=== PATIENT | female | born 1985 | race Caucasian/White ===

== ENCOUNTER 2021-01-29 08:24 | Emergency (ER) | payer BC, SELFPAY ==
--- NOTE | ~2021-01-29 | XR_ITS ---
EXAMINATION: XR ankle LT min 3V DATE: 01/29/2021 08:50 INDICATION: Left ankle pain TECHNIQUE: Anteroposterior, lateral, mortise, and additional oblique view of the ankle were obtained. COMPARISON: None. FINDINGS: There is no fracture, dislocation, or subluxation. The bones, soft tissues, and joint space s are normal. IMPRESSION: 1. No acute osseous abnormality. Reviewed, dictated and finalized at location A.
--- NOTE | 2021-01-29 08:30 | ED.LOWEXIN ---
HPI - Extremity Injury (Lower) General Chief Complaint: Extremity Injury, Lower Stated Complaint: left ankle injury Time Seen by Provider: 01/29/21 08:24 History of Present Illness HPI Narrative: Left ankle pain after rolling it coming down the stairs last night. Located at the lateral malleolus. Associated with swelling. She is not able to bear weight. No wound. No additional injury. Related Data Allergies Allergy/AdvReac Type Severity Reaction Status Date / Time Penicillins Allergy Intermediate HIVES,RASH Verified 01/29/21 08:37 Review of Systems Review of Systems: All systems reviewed & are unremarkable except as noted in HPI and below [facility] Social History Social History Gender identity (if verbalized by the patient): Female Exam Const: General: no acute distress and alert Orientation/consciousness: patient oriented x3 HENMT: Head: normal to inspection Resp: Effort & Inspection: normal respiratory effort Cardio: Other: 2+ left DP Skin: General skin exam: normal color Wounds: no wounds Neuro: General: patient oriented x3 and no focal motor deficits Speech: normal speech Extrem: Other: Tenderess and swelling over ATFL Course Vital Signs Vital signs: Vital Signs Temperature 36.3 C L 01/29/21 08:31 Pulse Rate 101 H 01/29/21 08:31 Respiratory Rate 20 01/29/21 08:31 Blood Pressure 163/93 H 01/29/21 08:31 Pulse Oximetry 98 01/29/21 08:31 Temperature 36.3 C L 01/29/21 08:31 Pulse Rate 87 01/29/21 09:34 Respiratory Rate 16 01/29/21 09:34 Blood Pressure 129/91 H 01/29/21 09:34 Pulse Oximetry 97 01/29/21 09:34 MDM - Extremity Injury (Lower) Differential Diagnosis Differential diagnosis: Likely ankle sprain and strain and ankle fracture Medical Records Attestation: I reviewed the patient's medical records. Imaging Data Radiologist's impression: ITS Impressions Ankle X-Ray 01/29/21 09:09 IMPRESSION: 1. No acute osseous abnormality. Discharge Plan Discharge Clinical Impression: Ankle sprain Patient Disposition: Home, Self-Care Condition: Stable Instructions: Ankle Sprain (ED) Follow-up/Referrals: Doretha,Juan Hobson DO [Primary Care Provider] -
[2021-01-29 08:31] VITALS: BP 163/93; PULSE 101; RESP 20; TEMP 36.3; O2SAT 98
[2021-01-29 09:34] VITALS: BP 129/91; PULSE 87; RESP 16; O2SAT 97
== END 2021-01-29 09:34 | disposition home or self-care (01) ==
PROVIDERS: Emergency Provider Emergency Medicine; PCP Family Medicine
DX: S93.402A Sprain of unspecified ligament of left ankle, initial encounter (principal); X50.9XXA Other and unspecified overexertion or strenuous movements or postures, initial encounter
CPT/HCPCS: 73610; 99283

== ENCOUNTER → 2022-03-28 10:46 | Outpatient (CLI) | payer BC, SELFPAY ==
--- NOTE | ~2022-03-28 | XR_ITS ---
EXAM: XR lumbar spine min 4V DATE: 03/28/2022 11:19 HISTORY: Low back pain . COMPARISON: None available. FINDINGS: 5 nonrib-bearing lumbar-type vertebral bodies. Pedicles intact. Normal vertebral body alig nment. Vertebral body heights preserved. Mild disc space narrowing. Multilevel mild facet sclerosis. No fracture or dislocation. IMPRESSION: Mild degenerative disc disease at L4-5. Mild facet arthropathy. Reviewed, dictated and finalized at location K.
== END ==
PROVIDERS: PCP Family Medicine; Visit Provider Chiropractor
DX: M51.36 Other intervertebral disc degeneration, lumbar region (principal)
CPT/HCPCS: 72110

== ENCOUNTER 2023-04-02 10:59 | Emergency (ER) | payer BC, SELFPAY ==
[2023-04-02 11:10] VITALS: BP 150/85; PULSE 95; RESP 16; TEMP 36.4; O2SAT 99
--- NOTE | 2023-04-02 11:18 | ED.URI ---
HPI - URI/Sore Throat General Chief Complaint: Upper Respiratory Infection Stated Complaint: COUGH/CONGESTION/WHEEZING Source: patient and RN notes reviewed History of Present Illness HPI Narrative: 37-year-old female presents urgent care with complaints of a cough, congestion, facial pressure, and headache for approximately 3 weeks. Patient states she has a history of allergies but everything she is doing at home is not working. Patient states her cough is worse now and she cannot cough anything up. Denies any fevers, chills chest pain, shortness of breath. Denies any vomiting. Patient has been taking [id number] cold and flu medication along with allergy medication without relief. Related Data Home Medications Medication Instructions Recorded Confirmed cetirizine 10 mg capsule (Zyrtec) 10 mg PO DAILY PRN Nasal Congestion 02/06/22 04/02/23 Allergies Allergy/AdvReac Type Severity Reaction Status Date / Time Penicillins Allergy Intermediate HIVES,RASH Verified 04/02/23 11:03 amoxicillin Allergy Hives Verified 04/02/23 11:03 Review of Systems Review of Systems: Pertinent positives and pertinent negatives per HPI. COUNT INCLUDES THE [facility] Past Medical History Medical History Abnormal Pap smear of cervix 05/13/2012 ascus hpv neg; 05/19/13 -ASCUS NEGATIVE HPV; 10/10/17 ascus neg hpv; Anxiety Depression Pneumonia Surgical History Surgical History History of placement of ear tubes multiple times History of tonsillectomy and adenoidectomy Family History Family History Grandparent Heart disease maternal grandfather Congestive heart failure maternal grandfather Lung cancer maternal grandfather paternal grandfather Small lymphocytic lymphoma paternal grandmother Father Hypertension Stomach cancer Sibling Hypertension brother Diabetes mellitus brother Mother Multiple sclerosis Social History Social History (Updated 03/07/23 @ 10:57 by CECILIA Almanzar) Smoking status: Former smoker Tobacco type: cigarettes Alcohol intake: current Drinks per week: 1 Substance use: current Substance use type: marijuana Other substance usage details: Edible Living arrangements: other Additional living arrangements comments: Occupation/Education: occupation Additional occupation/education comments: [employer] Gender identity (if verbalized by the patient): Female Sexual Orientation (if Verbalized by the Patient): Straight or Heterosexual Comments At the time of my signature, I reviewed and agree with the nursing past medical, surgical, social, and family history. There is no relevant family history pertinent to the patient complaint. Exam Narrative: GENERAL: This is a well-nourished, well-developed patient, in no apparent distress. HEAD: normocephalic, atraumatic. EYES: Sclera clear/white. Vision is grossly intact. EARS: External ears normal, auditory canals clear and without drainage, TMs normal without perforation. Hearing grossly intact. NOSE: Congestion THROAT: Mucous membranes moist, posterior pharynx clear. NECK: Neck supple, non-tender without lymphadenopathy, masses or thyromegaly. CARDIOVASCULAR: Regular rate and rhythm without murmurs, gallops, or rubs. RESPIRATORY: Clear to auscultation. Breath sounds equal bilaterally. No wheezes, rales, or rhonchi. patient is having a dry hacky cough. SKIN: warm, intact with no suspicious lesions or rash, good texture and turgor. NEURO: awake, alert, and oriented to person, place and time. There were no obvious focal neurologic abnormalities. EXTREMITIES: No clubbing, cyanosis, or edema. No joint tenderness, effusion, or edema noted. BACK: Nontender without deformity or crepitus. No flank tenderness. Course
== END 2023-04-02 11:23 | disposition home or self-care (01) ==
PROVIDERS: Emergency Provider Nurse Practitioner Family; PCP Family Medicine
DX: J40 Bronchitis, not specified as acute or chronic (principal); J32.9 Chronic sinusitis, unspecified; Z87.891 Personal history of nicotine dependence; F12.90 Cannabis use, unspecified, uncomplicated
CPT/HCPCS: 99213; G0463

== ENCOUNTER 2023-12-26 09:21 | Emergency (ER) | payer BC, SELFPAY ==
[2023-12-26 09:29] VITALS: BP 129/81; PULSE 96; RESP 16; TEMP 36.5; O2SAT 99
--- NOTE | 2023-12-26 09:31 | ED.URI ---
HPI - URI/Sore Throat General Chief Complaint: Upper Respiratory Infection Stated Complaint: FEVER/CHILLS/SINUS Time Seen by Provider: 12/26/23 09:31 Source: patient Mode of arrival: ambulatory Limitations: no limitations History of Present Illness HPI Narrative: 38-year-old female presents with complaint of nasal congestion, sinus pressure, fever, body aches and chills for 5 days. Reports fever resolved. States sinus pressure worse today, blowing out green drainage from nose. Concern for bacterial sinusitis. All systems reviewed and negative except as noted above. Related Data Allergies Allergy/AdvReac Type Severity Reaction Status Date / Time Penicillins Allergy Intermediate HIVES,RASH Verified 12/26/23 09:37 amoxicillin Allergy Hives Verified 12/26/23 09:37 Review of Systems Review of Systems: CONSTITUTIONAL: Denies fever, chills, or sweats. Reports fatigue. EYES: Denies visual changes, redness, or discharge. ENT: Reports rhinorrhea, congestion, sinus pressure. Denies sore throat, or otalgia. CARDIOVASCULAR: Denies chest pain, palpitations, or edema. RESPIRATORY: Denies cough or dyspnea. GASTROINTESTINAL: Denies abdominal pain, nausea, vomiting, or diarrhea. GENITOURINARY: Denies dysuria or hematuria. SKIN: Denies rash or itching. MUSCULOSKELETAL: Denies back pain, joint pain, or myalgia. NEUROLOGIC: Denies headache, numbness, or weakness. PSYCHIATRIC: Denies anxiety or depression. All other systems reviewed are negative, except as documented in HPI. [facility] Past Medical History Medical History Abnormal Pap smear of cervix 05/13/2012 ascus hpv neg; 05/19/13 -ASCUS NEGATIVE HPV; 10/10/17 ascus neg hpv; Anxiety Depression Pneumonia Surgical History Surgical History History of placement of ear tubes multiple times History of tonsillectomy and adenoidectomy Family History Family History Grandparent Heart disease maternal grandfather Congestive heart failure maternal grandfather Lung cancer maternal grandfather paternal grandfather Small lymphocytic lymphoma paternal grandmother Father Hypertension Stomach cancer Sibling Hypertension brother Diabetes mellitus brother Mother Multiple sclerosis Social History Social History (Updated 03/07/23 @ 10:57 by Molly King [facility]) Smoking status: Former smoker Tobacco type: cigarettes Alcohol intake: current Drinks per week: 1 Substance use: current Substance use type: marijuana Other substance usage details: Edible Living arrangements: other Additional living arrangements comments: Occupation/Education: occupation Additional occupation/education comments: [employer] Gender identity (if verbalized by the patient): Female Sexual Orientation (if Verbalized by the Patient): Straight or Heterosexual Comments At time of signature, agree with nursing past medical, surgical, social and family history. There is no relevant family history pertinent to the presenting complaint. Exam Narrative: GENERAL: This is a well-nourished, well-developed patient, in no apparent distress. HEAD: normocephalic, atraumatic. EYES: PERRL. Sclera clear/white. Vision is grossly intact. EARS: External ears normal, auditory canals clear and without drainage, fluid to bilateral TMs with mild erythema bilaterally without perforation. Hearing grossly intact. NOSE: External nose normal with purulent nasal drainage, moderate congestion, bilateral maxillary sinus tenderness on palpation. THROAT: Mucous membranes moist, postnasal drainage with mild erythema. No swelling or exudates. NECK: Neck supple, non-tender without lymphadenopathy, masses or thyromegaly. CARDIOVASCULAR: Regular rate and rhythm without murmurs, gallops, or rub
== END 2023-12-26 09:52 | disposition home or self-care (01) ==
PROVIDERS: Emergency Provider Nurse Practitioner Family; PCP Family Medicine
DX: J01.90 Acute sinusitis, unspecified (principal); Z20.822 Contact with and (suspected) exposure to COVID-19; Z87.891 Personal history of nicotine dependence; F12.90 Cannabis use, unspecified, uncomplicated
CPT/HCPCS: 87426; 87804; 99213; G0463

== ENCOUNTER 2024-11-26 15:54 | Emergency (ER) | payer BC, SELFPAY ==
[2024-11-26 16:05] VITALS: BP 140/78; PULSE 86; RESP 16; TEMP 36.7; O2SAT 100
--- NOTE | 2024-11-26 16:15 | ED.URI ---
HPI - URI/Sore Throat General Chief Complaint: Upper Respiratory Infection Stated Complaint: SINUS CONGESTION Time Seen by Provider: 11/26/24 16:09 Source: patient and RN notes reviewed Mode of arrival: ambulatory Limitations: no limitations History of Present Illness HPI Narrative: Patient presents today with a 3 week history of nasal congestion, sinus pressure, postnasal drainage, sore throat, photophobia. Denies fever or shortness of breath. She has tried some [place] day and night as well as a Neti pot without much relief. Related Data Home Medications ?Medication ?Instructions ?Recorded ?Confirmed ?Last Taken ?Type omega 1-mms-tbv-fish oil 100 1 cap PO DAILY 03/12/24 11/26/24 Unknown History mg-160 mg-1,000 mg capsule (Fish Oil) Allergies Allergy/AdvReac Type Severity Reaction Status Date / Time Penicillins Allergy Intermediate HIVES,RASH Verified 11/26/24 16:01 Sulfa (Sulfonamide Allergy Mild Rash Verified 11/26/24 16:16 Antibiotics) amoxicillin Allergy Hives Verified 11/26/24 16:01 Review of Systems Review of Systems: CONSTITUTIONAL: Denies body aches, fever, chills, or sweats. EYES: Denies visual changes, redness, or discharge.+ photophobia ENT: Denies rhinorrhea. + congestion, sinus pressure, postnasal drip, sore throat CARDIOVASCULAR: Denies chest pain, palpitations, or edema. RESPIRATORY: Denies cough or dyspnea. GASTROINTESTINAL: Denies abdominal pain, nausea, vomiting, or diarrhea. GENITOURINARY: Denies dysuria or hematuria. SKIN: Denies rash, itching, or wounds. MUSCULOSKELETAL: Denies back pain, joint pain, or myalgia. NEUROLOGIC: Denies headache, numbness, tingling, or weakness. PSYCH: Denies depression or anxiety. [facility] Past Medical History Medical History Pneumonia Depression Anxiety Abnormal Pap smear of cervix 05/13/2012 ascus hpv neg; 05/19/13 -ASCUS NEGATIVE HPV; 10/10/17 ascus neg hpv; Surgical History Surgical History History of tonsillectomy and adenoidectomy History of placement of ear tubes multiple times Family History Family History Grandparent Heart disease maternal grandfather Congestive heart failure maternal grandfather Lung cancer maternal grandfather paternal grandfather Small lymphocytic lymphoma paternal grandmother Father Hypertension Stomach cancer Sibling Hypertension brother Diabetes mellitus brother Mother Multiple sclerosis Social History Social History Smoking status: Former smoker Tobacco type: cigarettes Second hand tobacco smoke exposure: No Alcohol intake: current Drinks per week: 3 Substance use: current Substance use type: marijuana Other substance usage details: Edible Do You Feel Safe in your Home?: Yes Lack of Transportation: No Lack of Food: Never True Current Housing: I Have Housing Concerned About Future Housing: No Difficulty Paying Gas/Electric Bills: No Difficulty Paying for Meds: No Currently Unemployed: No Education: Bachelor's Degree Difficulty w/ Childcare or Family Care: No Living arrangements: other Additional living arrangements comments: Occupation/Education: occupation Additional occupation/education comments: [employer] Gender identity (if verbalized by the patient): Female Sexual Orientation (if Verbalized by the Patient): Straight or Heterosexual Comments At time of signature, I have reviewed and agree with nursing past medical, surgical, social and family history unless otherwise noted. Please see nursing chart for further information. There is no relevant family history pertinent to the presenting complaint Exam Narrative: GENERAL: Mildly ill-appearing, well-nourished, and in no acute distress. HEAD: Normocephalic, atraumatic. EYES: EOMI. No redness or drainage. Conjunctivae normal. ENT: Mucous membranes pink and moist. Nares congested. No rhinorrhea. TMs normal bilaterally. Throat mildly erythematous without edema or exudate. Uvula midline. Bilateral frontal and maxillary sinus tenderness NECK: Normal AROM. Supple. No lymphadenopathy. CHEST: No respiratory distress. Clear to auscultation. HEART: Regular rate and rhythm. No murmur appreciated. EXTREMITIES: Normal range of motion. No edema. SKIN: Warm, dry, no rash. Capillary refill normal. Normal skin turgor. NEURO: No focal deficits. Alert and oriented x3. Gait steady. PSYCH: Normal affect. No signs of depression or anxiety. Course Course Level of Care: Express Care Visit Vital Signs Vital signs: Vital Signs Temperature 98.1 F 11/26/24 16:05 Pulse Rate 86 11/26/24 16:05 Respiratory Rate 16 11/26/24 16:05 Blood Pressure 140/78 11/26/24 16:05 Pulse Oximetry 100 11/26/24 16:05 Temperature 98.1 F 11/26/24 16:05 Pulse Rate 86 11/26/24 16:05 Respiratory Rate 16 11/26/24 16:05 Blood Pressure 140/78 11/26/24 16:05 Pulse Oximetry 100 11/26/24 16:05 Reviewed MDM - URI/Sore Throat MDM Narrative Medical decision making narrative: Patient will be treated with doxycycline for bacterial sinusitis. Also discussed [id number] medication to help with her symptoms. Anticipatory guidance given. Differential Diagnosis Differential diagnosis: Likely upper respiratory infection, sinusitis and viral infection Critical Care Time Critical Care Time Critical Care Time: No Discharge Plan Discharge Clinical Impression: Acute bacterial sinusitis Patient Disposition: Home, Self-Care Condition: Stable Instructions: Antibiotic Form, Sinusitis (ED) Additional Instructions: Please take the doxycycline as prescribed until gone. Continue [id number] medication for symptoms. Taking Sudafed may be beneficial as well as using Flonase. Follow-up with your PCP in 3 days if symptoms are not improving. Your blood pressure was elevated above 120/80 today at Urgent Care. This puts you above the threshold for follow up. Please schedule a followup visit with your personal physician as soon as possible, for further evaluation and treatment. Even blood pressure exceeding 120/80 may indicate pre-hypertension. Patient Language: Syriac Prescriptions: New doxycycline hyclate 100 mg tablet 100 mg PO BID 7 Days Qty: 14 0RF No Action Fish Oil 100-160-1,000 mg capsule 1 cap PO DAILY Patient Comments: 1 Cap PO daily Rx Instructions: 1 cap po Daily drospirenone-ethinyl estradiol [DOREEN (28)] 3-0.02 mg tablet 1 tablet PO DAILY Qty: 84 3RF Follow-up/Referrals: Doretha,Juan Hobson DO [Primary Care Provider] - Time of Disposition: 16:19
== END 2024-11-26 16:22 | disposition home or self-care (01) ==
PROVIDERS: Emergency Provider Nurse Practitioner; PCP Family Medicine
DX: J01.90 Acute sinusitis, unspecified (principal); F12.90 Cannabis use, unspecified, uncomplicated; Z87.891 Personal history of nicotine dependence
CPT/HCPCS: 99213; G0463